=== PATIENT | male | born 1960 | race Caucasian/White ===

== ENCOUNTER 2018-08-10 07:36 | Day surgery (SDC) | payer OTHER ==
[2018-08-10] MEDS ORDERED: OXYCODONE/ACETAMINOPHEN (5/325) TAB PO ×2 (08:30)
[2018-08-10] MEDS ORDERED: ONDANSETRON 4 MG INJ IV (08:30)
[2018-08-10] MEDS ORDERED: FENTAnyl 50 MCG/ML VIAL IV ×3 (08:30)
[2018-08-10] MEDS: MOXIFLOXACIN 0.5% 3 ML OPH OPER ×2 (08:31→09:47)
[2018-08-10] MEDS: CYCLOPENTOLATE 2% 2 ML OPH OPER (08:31)
[2018-08-10] MEDS: NEPAFENAC 0.1% 3 ML OPH OPER (08:31)
[2018-08-10] MEDS: PHENYLephrine 10% 5 ML OPH OPER (08:32)
[2018-08-10] MEDS ORDERED: FENTAnyl 50 MCG/ML VIAL (08:58)
[2018-08-10] MEDS ORDERED: LIDOCAINE 2% (SDV) 5 ML INJ (08:58)
[2018-08-10] MEDS ORDERED: PROPOFOL 20 ML ×2 (08:58→09:11)
[2018-08-10] MEDS ORDERED: LACTATED RINGER'S 1,000 ML IV (09:00)
[2018-08-10] MEDS ORDERED: TETRACAINE 0.5% 4 ML OPH (09:01)
[2018-08-10] MEDS: LIDOCAINE 2% (MDV) 20 ML INJ (09:27)
[2018-08-10] MEDS: EPINEPHrine 1 MG INJ (09:45)
[2018-08-10] MEDS: TIMOLOL 0.5% 5 ML OPH (09:46)
[2018-08-10] MEDS: LIDOCAINE 1% (MPF) 10 ML INJ (09:46)
[2018-08-10] MEDS ORDERED: hydrALAzine 20 MG INJ (10:19)
[2018-08-10] MEDS: hydrALAzine 20 MG INJ IV (10:34)
[2018-08-10] MEDS ORDERED: SODIUM HYALURONATE 14 MG/ML SYG (11:57)
== END 2018-08-10 11:10 | disposition home or self-care (01) ==
LOC: SDS 07:36
DX: H25.11 Age-related nuclear cataract, right eye (principal)
CPT/HCPCS: 66984